=== PATIENT | female | born 2000 | race Caucasian/White ===

== ENCOUNTER 2024-04-11 12:34 | Inpatient (IN) | payer BC, OTHER, SELFPAY ==
[2024-04-11] VITALS (34 sets, daily range): BP systolic 116–148; BP diastolic 70–99; PULSE 70–103; RESP 14–17; TEMP 36.7–36.8; O2SAT 99; BMI 26.2
[2024-04-11 05:44] LABS: Basophils # 0.1 10^3/uL (0.0-0.1); Basophils % 0.7 %; Eosinophils # 0.2 10^3/uL (0.0-0.8); Eosinophils % 1.8 %; Hematocrit 41.7 % (36-47); Lymphocytes # 2.1 10^3/uL (0.8-4.8); Lymphocytes % 25.7 %; Mean Corpuscular HGB Conc 35.3 g/dL (30-55); Mean Corpuscular Hemoglobin 30.9 pg (27-33); Mean Corpuscular Volume 87.6 fl (85-98); Mean Platelet Volume 10.9 fL (7.4-10.4); Monocytes % 11.6 %; Neutrophils # 4.85 10^3/uL (1.8-7.7); Neutrophils % 58.4 %; Nucleated Red Blood Cells % 0 %; Platelet Count 193 10^3/cmm (157-399); Red Blood Count 4.76 10^6/uL (3.85-5.65); Red Cell Distribution Width 12.4 % (12.1-15.1)
[2024-04-11] MEDS: acetaminophen 325 mg Tablet 650 MG PO (08:22)
[2024-04-11] MEDS: hyDROXYzine 25 mg Capsule 50 MG PO (08:22)
[2024-04-11] MEDS: fentaNYL 50 mcg/mL INJ 2mL IVP ×2 (09:32→10:46)
[2024-04-11] MEDS: dextrose 5%-lactated ringers 1,000 ML 125 ML IV (12:50)
[2024-04-11] MEDS: oxytocin 30 UNIT/500 ML BAG 600 UNIT IV (14:00)
--- NOTE | 2024-04-11 16:18 | PC.NURSE ---
1600 pt up to bathroom, then going to nursery.
--- NOTE | 2024-04-11 17:05 | PM.OPHPUD ---
Labor & Delivery H&P Update Date of Procedure: April 11, 2024 Date H&P Performed: 04/04/24 Admission Diagnosis: IUP at 40w2d SROM Planned procedure: Expectant management of labor and delivery
--- NOTE | 2024-04-11 17:06 | PM.DELIVERY ---
Delivery Note: Date of delivery: April 11, 2024 Procedure: Normal spontaneous vaginal delivery Estimated blood loss (mL): 250 Pre-Delivery Course: The patient had routine care at [facility]. Blood type O+ antibody negative hepatitis B nonreactive, hepatitis C nonreactive, HIV nonreactive, rubella immune, GC chlamydia negative, RPR nonreactive, UDS negative, Q low risk, she passed her glucose tolerance test, she was GBS negative. Delivery: This is a 23-year-old G1, P0 at 40 weeks 2 days who presented to labor and delivery with spontaneous rupture of membranes. Her fluid was clear and she declined an epidural for pain management. Rupture of membranes was approximately 9 hours prior to delivery. She did receive 2 doses of fentanyl. Her labor progressed well on its own and she had a normal spontaneous vaginal delivery of a viable male infant weight 3845 grams Apgars 8 and 9 over an intact perineum. The infant was suctioned at delivery and placed on the mother's chest. The cord was clamped and cut. The placenta was delivered grossly intact and normal to inspection. There was a first-degree right vaginal laceration that was sutured with 1 stitch of 3-0 chromic. Mother was doing well after delivery. The infant was grunting and requiring some CPAP. Coding Level of Care Code Acute Code for Chg Fwd
[2024-04-11] MEDS: ibuprofen 800 mg tablet PO (20:05)
[2024-04-11] MEDS: docusate sodium 100 mg Capsule PO (20:05)
[2024-04-12 03:13] LABS: Hematocrit 36.5 % (36-47); Mean Corpuscular Hemoglobin 30.3 pg (27-33); Mean Corpuscular Volume 89.2 fl (85-98); Mean Platelet Volume 10.4 fL (7.4-10.4); Platelet Count 160 10^3/cmm (157-399); Red Blood Count 4.09 10^6/uL (3.85-5.65); Red Cell Distribution Width 12.5 % (12.1-15.1); White Blood Count 13.56 10^3/uL (3.29-11.43)
[2024-04-12 05:00] VITALS: BP 126/80; PULSE 82; RESP 14; TEMP 36.8; O2SAT 97
[2024-04-12] MEDS: ibuprofen 800 mg tablet PO (10:44)
[2024-04-12] MEDS: PRENATAL VIT NO.130/IRON/FOLIC 1 EACH TABLET PO (10:44)
[2024-04-12] MEDS: docusate sodium 100 mg Capsule PO (10:44)
[2024-04-12 10:47] VITALS: BP 133/91; PULSE 96; RESP 16; TEMP 36.8
[2024-04-12 10:51] VITALS: BP 133/91; PULSE 96; RESP 16; TEMP 36.8
--- NOTE | 2024-04-12 12:27 | P.DS_ITS ---
Discharge Providers Date of Admission: 04/11/24 12:34 Date of Discharge: April 12, 2024 Attending Provider at Admission: Fang Solomon MD Attending Provider at Discharge: Fang Solomon MD Primary Care Provider: Fang Solomon MD Diagnoses at Discharge Discharge Diagnosis (1) Normal spontaneous vaginal delivery: Details from hospital stay: Nothing per vagina for 6 weeks. The patient will follow-up in 4 weeks. Status: Acute (2) Elevated blood pressure reading: Details from hospital stay: The patient had a couple minimally elevated blood pressure . Follow- up in 1 week for blood pressure check. Status: Acute Reason for Visit Reason for Visit: Possible ROM Hospital Course Hospital Course This is a 23-year-old G1 now P1 who was admitted in active labor at 40 weeks gestation. She had a normal spontaneous vaginal delivery of a viable male infant. Mother did well after delivery. She was ambulating, tolerating a regular diet, had average vaginal bleeding and was requesting discharge so she could accompany baby to the NICU. The was having some respiratory issues. Physical Exam Narrative: Alert and oriented, sitting up on the side of the bed, heart regular rate and rhythm, lungs clear to auscultation bilaterally, abdomen is soft and nontender, fundus is firm, extremities have 1+ edema but no calf tenderness Discharge Data Studies Completed and Pending Laboratory Results WBC 13.56 10^3/uL (3.29-11.43) H 04/12/24 03:05 RBC 4.09 10^6/uL (3.85-5.65) 04/12/24 03:05 Hgb 12.40 g/dL (11.27-16.99) 04/12/24 03:05 Hct 36.5 % (36-47) 04/12/24 03:05 MCV 89.2 fl (85-98) 04/12/24 03:05 MCH 30.3 pg (27-33) 04/12/24 03:05 MCHC 34.0 g/dL (30-55) 04/12/24 03:05 RDW 12.5 % (12.1-15.1) 04/12/24 03:05 Plt Count 160 10^3/cmm (157-399) 04/12/24 03:05 MPV 10.4 fL (7.4-10.4) 04/12/24 03:05 Neut % (Auto) 58.4 % 04/11/24 05:06 Lymph % (Auto) 25.7 % 04/11/24 05:06 [place] % (Auto) 11.6 % 04/11/24 05:06 Eos % (Auto) 1.8 % 04/11/24 05:06 Baso % (Auto) 0.7 % 04/11/24 05:06 Neut # (Auto) 4.85 10^3/uL (1.8-7.7) 04/11/24 05:06 Lymph # (Auto) 2.1 10^3/uL (0.8-4.8) 04/11/24 05:06 [place] # (Auto) 1.0 10^3/uL (0.2-0.9) H 04/11/24 05:06 Eos # (Auto) 0.2 10^3/uL (0.0-0.8) 04/11/24 05:06 Baso # (Auto) 0.1 10^3/uL (0.0-0.1) 04/11/24 05:06 Nucleated RBC % (auto) 0 % 04/11/24 05:06 Nucleated RBCs # 0.0 /100WBC 04/11/24 05:06 Blood Type O Positive 04/11/24 05:06 Rho(D) Type Rh positive 04/11/24 05:06 Antibody Screen Negative 04/11/24 05:06 Vitals Last Vital Signs Temp 98.2 F 04/12/24 10:51 Pulse 96 04/12/24 10:51 Resp 16 04/12/24 10:51 BP 133/91 04/12/24 10:51 Pulse Ox 97 04/12/24 05:00 O2 Del Method Room Air 04/12/24 10:47 Discharge Plan Discharge Patient Disposition: Home Condition: Stable Prescriptions: Continued 28 mg iron- 800 mcg Tablet 1 tab PO DAILY Discharge Orders: Discharge Order (Routine); Ordered 04/12/24 Ordered By: Fang Solomon Referrals: Fang Solomon MD [Primary Care Provider] - 04/19/24 1:15 pm ( You have a 4 week follow up with Dr Solomon on 05/14/24 at 10:00am ) Discharge Diet: Usual diet Discharge Activity: Limit activity as instructed Patient Instructions: Depression (DC), Bleeding (DC), Preeclampsia and Eclampsia After Delivery (GEN), Hemorrhage (DC), OB Discharge Report, OB Food/Drug Interaction Guide, Opioid Safety, OB Home Care, OB Proud Parent Packet, OB Vaginal Deliveries Activity Restrictions/Additional Instructions: Nothing per vagina for 6 weeks. Discharge Attestations Time Spent in Discharge Care*: less than 30 min Quality Metrics Clinical Quality Measures [ No reported AMI, CVA or VTE this stay] Coding Level of Care Code Acute Code for Chg Fwd Diagnoses Normal spontaneous vaginal delivery O80 Elevated blood pressure reading R03.0
== END 2024-04-12 11:20 | disposition home or self-care (01) | DRG 806 ==
LOC: OPOB 12:35 → OBGYN 12:35
PROVIDERS: Admitting Provider Family Medicine; PCP Family Medicine; Visit Provider Family Medicine
DX: O48.0 Post-term pregnancy (principal); O71.4 Obstetric high vaginal laceration alone; Z37.0 Single live birth; Z3A.40 40 weeks gestation of pregnancy; O99.893 Other specified diseases and conditions complicating puerperium; R03.0 Elevated blood-pressure reading, without diagnosis of hypertension
CPT/HCPCS: 36415; 59025; 59409; 83986; 85025; 85027; 86850; 86900; 96374; 96376; 99211; J2590; J3010; J7121

== ENCOUNTER 2024-06-26 10:44 | Outpatient (CLI) | payer OTHER, SELFPAY ==
[2024-06-26 15:00] LABS: HIV 1 & 2 Antigen Non-Reactive (Non-Reactiv)
[2024-06-26 15:01] LABS: HIV 1 & 2 Antibody Non-Reactive (Non-Reactiv)
[2024-06-26 15:02] LABS: Hepatitis B Surface AB < 3.5 (11.5-1000); Hepatitis B Surface Antigen Non-Reactive (Nonreactive); Hepatitis C Virus Antibody Non-Reactive (Nonreactive)
== END 2024-06-26 10:45 | disposition home or self-care (01) ==
LOC: LAB 10:48
PROVIDERS: PCP Family Medicine; Visit Provider Family Medicine
DX: Z01.89 Encounter for other specified special examinations (principal); W46.0XXA Contact with hypodermic needle, initial encounter
CPT/HCPCS: 86706; 86803; 87340; 87806